=== PATIENT | female | born 1980 | race Hispanic/Latino ===

== ENCOUNTER 2018-03-01 17:22 | Emergency (ER) | payer SELFPAY ==
[2018-03-01 17:32] VITALS: BMI 28.3
[2018-03-01 17:47] VITALS: BP 145/93; PULSE 85; RESP 17; TEMP 98.3; O2SAT 100
[2018-03-01] MEDS ORDERED: Apap-Butalbital-Caffeine 325-50-40mg Tab PO STA (17:56)
[2018-03-01] MEDS ORDERED: Apap-Butalbital-Caffeine 325-50-40mg Tab ONE ×2 (18:14→18:44)
--- NOTE | 2018-03-01 18:39 | C.PDOC ---
History Of Present Illness Patient presents to ED c/o B/L occipital headache, as well as sore throat, chills and nonproductive cough for approx 6-7 days. Patient denies neck pain/ stiffness, fever, productive cough, chest pain, SOB, vomiting/diarrhea, headache , visual changes, dizziness, ear pain. Patient took tylenol earlier today without improvement. Time Seen by Provider: 03/01/18 17:39 Chief Complaint (Nursing): Headache History Per: Patient History/Exam Limitations: no limitations Onset/Duration Of Symptoms: Days Current Symptoms Are (Timing): Still Present Severity: Mild Quality: "Pain" Associated Symptoms: denies: Photophobia, Blurred Vision, Nausea, Vomiting Past Medical History Reviewed: Historical Data, Nursing Documentation, Vital Signs Vital Signs: Last Vital Signs Temp 98.3 F 03/01/18 17:37 Pulse 85 03/01/18 17:37 Resp 17 03/01/18 17:37 BP 145/93 H 03/01/18 17:37 Pulse Ox 100 03/01/18 18:45 - Medical History PMH: Gastritis - [facility] Procedures EXTRACTION OF POC, LOW CERVICAL, OPEN APPROACH (08/02/15) MONITORING OF POC, CARDIAC RATE, MUSIC INSTRUCTOR APPROACH (08/02/15) Family History: States: No Known Family Hx - Social History Hx Tobacco Use: No Hx Alcohol Use: No Hx Substance Use: No - Immunization History Hx Tetanus Toxoid Vaccination: No Hx Influenza Vaccination: No Hx Pneumococcal Vaccination: No Review Of Systems Constitutional: Positive for: Chills. Negative for: Fever ENT: Positive for: Nose Congestion, Throat Pain Respiratory: Positive for: Cough. Negative for: Shortness of Breath Gastrointestinal: Negative for: Nausea, Vomiting, Abdominal Pain, Diarrhea Skin: Negative for: Rash Neurological: Positive for: Headache Physical Exam - Physical Exam Appears: Well, Non-toxic, No Acute Distress Skin: Normal Color, Warm, Dry, No Rash Head: Normacephalic Eye(s): bilateral: Normal Inspection, PERRL, EOMI Oral Mucosa: Moist Throat: Normal, No Erythema, No Exudate Neck: Normal, Supple, Other (no meningismus ) Cardiovascular: Rhythm Regular Respiratory: Normal Breath Sounds, No Rales, No Rhonchi, No Wheezing Gastrointestinal/Abdominal: Normal Exam, Bowel Sounds, Soft, No Tenderness Neurological/Psych: Oriented x3 ED Course And Treatment O2 Sat by Pulse Oximetry: 100 (RA) Pulse Ox Interpretation: Normal Progress Note: Patient given PO Fiorecet. On reassessment, patient still c/o mild posterior headache, requesting something else for pain. IM toradol and PO flexeril given. Reevaluation Time: 19:15 Reassessment Condition: Improved (Patient reassessed, is resting comfortably and states she feels better. Rx for Naprosyn given, and patient instructed to follow up with PMD in 1-2 days. She understands she should return to ED if symptoms worsen.) Disposition Counseled Patient/Family Regarding: Diagnosis, Need For Followup, Rx Given - Disposition Referrals: [facility] at [facility] [Outside] Disposition: HOME/ ROUTINE Disposition Time: 19:00 Condition: STABLE Additional Instructions: FOLLOW UP WITH YOUR DOCTOR/CLINIC IN 1-2 DAYS USE MEDICATION NEEDED DRINK PLENTY OF FLUIDS RETURN TO EMERGENCY ROOM IF SYMPTOMS WORSEN SEGUIMIENTO CON PHELPS MDICO / CLNICA EN 1-2 BELTRAN USE MEDICAMENTOS SEGN SEA NECESARIO BEBER MUCHO LQUIDO REGRESE AL JUNIOR DE EMERGENCIA SI LOS SNTOMAS EMPEORAN Prescriptions: Naproxen 375 mg PO BID PRN #20 tablet PRN Reason: pain Instructions: Headache, Adult (DC), Viral Syndrome (DC) Forms: [facility] (Luxembourgish) Print Language: OLY - FLO Present On Arrival: None - Clinical Impression Clinical Impression: Headache, Viral syndrome
== END 2018-03-01 19:16 | disposition home or self-care (01) ==
LOC: C.ER 17:22
DX: B34.9 Viral infection, unspecified (principal); R51 Headache
CPT/HCPCS: 96372; 99284; J1885

== ENCOUNTER 2018-03-09 23:05 | Emergency (ER) | payer SELFPAY ==
[2018-03-09 23:06] VITALS: BMI 28.3
[2018-03-09 23:14] VITALS: O2SAT 100
[2018-03-09] MEDS ORDERED: Tramadol 25 mg PO STA (23:25)
[2018-03-10 00:57] VITALS: BP 133/86; PULSE 66; RESP 18; TEMP 98.5
--- NOTE | 2018-03-10 01:04 | C.PDOC ---
History Of Present Illness 38 year old female presents to the ER with a complaint of an occipital headache for the past 2 weeks. Patient was seen in the ER before for the same complaint and states naproxen no longer helps. He describes the headache as a tightness/ pressure to the occipital area radiating to his neck. Denies trauma, photophobia , weakness, or dizziness. Time Seen by Provider: 03/09/18 23:16 Chief Complaint (Nursing): Headache History Per: Patient History/Exam Limitations: no limitations Onset/Duration Of Symptoms: Days Current Symptoms Are (Timing): Still Present Quality: Tightness, Pressure Preceeding Symptoms: None Associated Symptoms: denies: Photophobia, Blurred Vision, Nausea, Vomiting, Extremity Weakness Recent travel outside of the [place]: No Past Medical History Reviewed: Historical Data, Nursing Documentation, Vital Signs Vital Signs: Last Vital Signs Temp 98.5 F 03/10/18 00:56 Pulse 66 03/10/18 00:56 Resp 18 03/10/18 00:56 BP 133/86 03/10/18 00:56 Pulse Ox 100 03/10/18 01:04 - Medical History PMH: Gastritis, HTN (preeclampsia) - [facility] Procedures EXTRACTION OF POC, LOW CERVICAL, OPEN APPROACH (08/02/15) MONITORING OF POC, CARDIAC RATE, MANAGER GAMES APPROACH (08/02/15) Family History: States: Unknown Family Hx - Social History Hx Tobacco Use: No Hx Alcohol Use: No Hx Substance Use: No - Immunization History Hx Tetanus Toxoid Vaccination: No Hx Influenza Vaccination: No Hx Pneumococcal Vaccination: No Review Of Systems Musculoskeletal: Positive for: Neck Pain Neurological: Positive for: Headache. Negative for: Weakness, Numbness, Dizziness, Other (Photophobia) Physical Exam - Physical Exam Appears: Non-toxic Skin: Normal Color, Warm, Dry Head: Atraumatic, Normacephalic Eye(s): bilateral: Normal Inspection, PERRL, EOMI Oral Mucosa: Moist Neck: Normal, No Midline Cervical Tenderness, No Paracervical Tenderness, Supple Extremity: Normal ROM (x4) Neurological/Psych: Oriented x3, Normal Speech ED Course And Treatment O2 Sat by Pulse Oximetry: 100 (Room air) Pulse Ox Interpretation: Normal - CT Scan/US CT head Other Rad Studies (CT/US): Read By Radiologist, Radiology Report Reviewed CT/US Interpretation: EXAM: CT Head Without Intravenous Contrast. EXAM DATE/ TIME: 03/09/2018 11:24 PM. CLINICAL HISTORY: 38 years old, female; Pain; Headache; Headache not specified; Additional info: Headache, occipital. TECHNIQUE: Axial computed tomography images of the head/brain without intravenous contrast. All CT scans at this facility use at least one of these dose optimization techniques: automated. exposure control; mA and/or kV adjustment per patient size (includes targeted exams where dose is. matched to clinical indication); or iterative reconstruction. Coronal and sagittal reformatted images were created and reviewed. COMPARISON: No relevant prior studies available. FINDINGS: Brain: Normal. No hemorrhage. No significant white matter disease. No edema. Ventricles: Normal. No ventriculomegaly. Bones /joints: Normal. No acute fracture. Sinuses: Normal as visualized. No acute sinusitis. Mastoid air cells: Normal as visualized. No mastoid effusion. Soft tissues: Normal. IMPRESSION: No acute findings. Progress Note: CT head ordered, results were negative. Tramadol and valium administered. Patient reports improvement of headache, she is resting comfortably in the ER in no acute distress, vitals are stable, will discharge home with Rx and instructions to follow up with PMD. Disposition Counseled Patient/Family Regarding: Diagnosis, Need For Followup - Disposition Referrals: [facility] at [facility] [Outside] Disposition: HOME/ ROUTINE Disposition Time: 01:01 Condition: STABLE Additional Instructions: Please follow up with PMD Take meds as directed Return to return to ER if worse Prescriptions: Cyclobenzaprine [Cyclobenzaprine HCl] 10 mg PO HS #7 tab traMADol [Ultram] 50 mg PO TID #15 tab Instructions: Headache, Adult (DC) Forms: [facility] (Grenadian) Print Language: SERBIAN - Clinical Impression Clinical Impression: Headache - Scribe Statement The provider has reviewed the documentation as recorded by the Scribe Ernst Winkler All medical record entries made by the Stanislawibe were at my direction and personally dictated by me. I have reviewed the chart and agree that the record accurately reflects my personal performance of the history, physical exam, medical decision making, and the department course for this patient. I have also personally directed, reviewed, and agree with the discharge instructions and disposition.
--- NOTE | 2018-03-10 10:29 | CT ---
Date of service: 03/10/2018 PROCEDURE: CT HEAD WITHOUT CONTRAST. HISTORY: Headache, occipital COMPARISON: None available. TECHNIQUE: Axial computed tomography images were obtained through the head/brain without intravenous contrast. Radiation dose: Total exam DLP = 1097.39 mGy-cm. This CT exam was performed using one or more of the following dose reduction techniques: Automated exposure control, adjustment of the mA and/or kV according to patient size, and/or use of iterative reconstruction technique. FINDINGS: HEMORRHAGE: No intracranial hemorrhage. BRAIN: No mass effect or edema. No atrophy or chronic microvascular ischemic changes. VENTRICLES: Unremarkable. No hydrocephalus. CALVARIUM: Unremarkable. PARANASAL SINUSES: Unremarkable as visualized. No significant inflammatory changes. MASTOID AIR CELLS: Unremarkable as visualized. No inflammatory changes. OTHER FINDINGS: None. IMPRESSION: Normal CT of the Head.
== END 2018-03-10 01:09 | disposition home or self-care (01) ==
LOC: C.ER 23:05
DX: R51 Headache (principal)

== ENCOUNTER 2018-08-25 23:17 | Emergency (ER) | payer SELFPAY ==
[2018-08-25 23:17] VITALS: BMI 28.3
[2018-08-25 23:26] VITALS: BP 158/91; PULSE 71; TEMP 98.3; O2SAT 100
--- NOTE | 2018-08-26 00:24 | C.PDOC ---
History Of Present Illness 38 year old female presents to the ER with pain to the left lateral rib area and left upper back area for the past 2 weeks that worsened today. She has been taking tylenol on and off. Denies SOB or injury. Time Seen by Provider: 08/25/18 23:31 Chief Complaint (Nursing): Back Pain History Per: Patient History/Exam Limitations: no limitations Onset/Duration Of Symptoms: Days Current Symptoms Are (Timing): Still Present Quality Of Discomfort: Unable To Describe Recent travel outside of the [place]: No Past Medical History Reviewed: Historical Data, Nursing Documentation, Vital Signs Vital Signs: Last Vital Signs Temp 98.3 F 08/25/18 23:22 Pulse 71 08/25/18 23:22 Resp 16 08/25/18 23:22 BP 158/91 H 08/25/18 23:22 Pulse Ox 100 08/25/18 23:22 - Medical History PMH: Gastritis, HTN (preeclampsia) - [facility] Procedures EXTRACTION OF POC, LOW CERVICAL, OPEN APPROACH (08/02/15) MONITORING OF POC, CARDIAC RATE, PARASITOLOGIST APPROACH (08/02/15) Family History: States: Unknown Family Hx - Social History Hx Tobacco Use: No Hx Alcohol Use: No Hx Substance Use: No - Immunization History Hx Tetanus Toxoid Vaccination: No Hx Influenza Vaccination: No Hx Pneumococcal Vaccination: No Review Of Systems Constitutional: Negative for: Fever, Chills Cardiovascular: Negative for: Chest Pain, Palpitations Respiratory: Negative for: Shortness of Breath Musculoskeletal: Positive for: Back Pain, Other (Rib pain) Neurological: Negative for: Weakness, Numbness Physical Exam - Physical Exam Appears: Non-toxic Skin: Normal Color, Warm, Dry Head: Atraumatic, Normacephalic Eye(s): bilateral: Normal Inspection Oral Mucosa: Moist Neck: Normal, Supple Chest: Tenderness (with palpation of left intercostal area at mid axillary line) Cardiovascular: Rhythm Regular Respiratory: Normal Breath Sounds, No Rales, No Rhonchi, No Wheezing Extremity: Normal ROM (x4) Neurological/Psych: Oriented x3, Normal Speech ED Course And Treatment O2 Sat by Pulse Oximetry: 100 (Room air) Pulse Ox Interpretation: Normal - Radiology CXR: Interpreted by Me, Viewed By Me CXR Interpretation: Yes: No Acute Disease. No: Infiltrates Progress Note: CXR ordered, results were negative. Motrin administered for pain. Patient resting comfortably in no acute distress, vitals are stable, will discharge home with Rx and instructions to follow up with PMD. Disposition Counseled Patient/Family Regarding: Diagnosis, Need For Followup, Rx Given - Disposition Disposition: HOME/ ROUTINE Disposition Time: 00:22 Condition: STABLE Additional Instructions: Follow up in clinic Take medications as directed Return to ER if worse Prescriptions: Cyclobenzaprine [Cyclobenzaprine HCl] 10 mg PO HS #10 tab Ibuprofen [Motrin] 600 mg PO Q6H #20 tab Instructions: Muscle Strain (DC) Forms: [facility] (Taiwanese) Print Language: UZBEK - Clinical Impression Clinical Impression: Muscle strain - PA / LEAD FORMER / Resident Statement MD/DO has reviewed & agrees with the documentation as recorded. - Scribe Statement The provider has reviewed the documentation as recorded by the Scribbret Winkler All medical record entries made by the Stanislawibbret were at my direction and personally dictated by me. I have reviewed the chart and agree that the record accurately reflects my personal performance of the history, physical exam, medical decision making, and the department course for this patient. I have also personally directed, reviewed, and agree with the discharge instructions and disposition.
[2018-08-26 00:33] VITALS: RESP 20
--- NOTE | 2018-08-26 11:06 | RAD ---
Date of service: 08/25/2018 PROCEDURE: Radiographs of the Chest and Left Ribs. HISTORY: pain to left ribs COMPARISON: None available. TECHNIQUE: Frontal radiograph of the chest and multiple oblique radiographs of the left ribs were obtained. FINDINGS: LEFT RIBS: No acute rib fracture or focal lesion visualized. LUNGS: The lungs are well inflated and clear. PLEURA: No pneumothorax or pleural fluid. CARDIOVASCULAR: Normal cardiac size. No pulmonary vascular congestion. No aortic atherosclerotic calcification present OTHER FINDINGS: None. IMPRESSION: No acute rib fracture. Clear lungs.
== END 2018-08-26 00:32 | disposition home or self-care (01) ==
LOC: C.ER 23:17
DX: S29.019A Strain of muscle and tendon of unspecified wall of thorax, initial encounter (principal); X58.XXXA Exposure to other specified factors, initial encounter

== ENCOUNTER 2018-11-02 15:26 | Emergency (ER) | payer SELFPAY ==
[2018-11-02 15:27] VITALS: BMI 28.3
[2018-11-02 15:34] VITALS: O2SAT 100
--- NOTE | 2018-11-02 16:21 | C.PDOC ---
History Of Present Illness 38 year old female presents to the ED complaining of palpitations and shortness of breath since last night around 2330. Reports she has sharp intermittent chest pain on deep breathing but does not longer have the palpitations or shortness of breath. Notes she has had cough for 3 days. Denies any leg swelling, use of control or any other hormone use, recent travels, recent surgery or trauma, or feeling anxious. Reports similar presentation once before when she was told she had high blood pressure. Time Seen by Provider: 11/02/18 15:55 Chief Complaint (Nursing): Palpitations History Per: Patient History/Exam Limitations: no limitations Onset/Duration Of Symptoms: Hrs Current Symptoms Are (Timing): Still Present Past Medical History Reviewed: Historical Data, Nursing Documentation, Vital Signs Vital Signs: Last Vital Signs Temp 97.7 F 11/02/18 15:33 Pulse 76 11/02/18 15:33 Resp 20 11/02/18 15:33 BP 160/109 H 11/02/18 15:33 Pulse Ox 100 11/02/18 15:33 - Medical History PMH: Gastritis, HTN (preeclampsia) Surgical History: - [facility] Procedures EXTRACTION OF POC, LOW CERVICAL, OPEN APPROACH (08/02/15) MONITORING OF POC, CARDIAC RATE, GRATED CHEESE MAKER APPROACH (08/02/15) Family History: States: No Known Family Hx - Social History Hx Tobacco Use: No Hx Alcohol Use: No Hx Substance Use: No - Immunization History Hx Tetanus Toxoid Vaccination: No Hx Influenza Vaccination: No Hx Pneumococcal Vaccination: No Review Of Systems Except As Marked, All Systems Reviewed And Found Negative. Cardiovascular: Positive for: Palpitations Respiratory: Positive for: Shortness of Breath Psych: Negative for: Anxiety Physical Exam - Physical Exam Additional Physical Exam Comments: Constitutional: No acute distress. Head: Normocephalic. Atraumatic. Eyes: PERRL. ENT: Moist mucous membranes. Neck: Supple. Cardiovascular: Regular rate. Radial pulse 2+ bilaterally. Chest: No tenderness. Respiratory: Clear to auscultation bilaterally. GI: Soft. Nontender. Nondistended. Back: No CVA tenderness. Musculoskeletal: No tenderness or swelling of extremities. Skin: No rash. Neurologic: Alert, no focal deficit. PERC negative ED Course And Treatment - Laboratory Results Result Diagrams: 11/02/18 16:40 11/02/18 16:40 O2 Sat by Pulse Oximetry: 100 (RA) Pulse Ox Interpretation: Normal - Other Rad CXR X-Ray: Viewed By Me, Read By Radiologist Interpretation: Accession No. : [id number]. Patient Name / ID : VANCE GALAN / [id number]. Exam Date : 11/02/2018 16:15:15 ( Approved ). Study Comment : Sex / Age : F / 38Y. Creator : London Landrum MD. Dictator : London Landrum MD. Machine Or Machinery Mechanic : Refrigeration Lead : London Landrum MD. Approver2 : Report Date : 11/02/2018 16:53:27. My Comment : . Date of service: 11/02/2018. HISTORY: palpitations. COMPARISON: 08/25/2018. TECHNIQUE: Chest PA and lateral views. Two views. FINDINGS: LUNGS: No active pulmonary disease. PLEURA: No significant pleural effusion identified. No pneumothorax apparent. CARDIOVASCULAR: No aortic atherosclerotic calcification present. Normal cardiac size. No pulmonary vascular congestion. OSSEOUS STRUCTURES: No significant abnormalities. VISUALIZED UPPER ABDOMEN: Normal. OTHER FINDINGS: None. IMPRESSION: No active disease. Medical Decision Making Medical Decision Making: Plan - Bloodwork - CXR BP resolved without intervention. Will discharge, f/u PMD, return to ED for worsening pain, dyspnea, or any other problem. Disposition - Disposition Referrals: [facility] at [facility] [Outside] Disposition: HOME/ ROUTINE Disposition Time: 18:17 Condition: GOOD Instructions: Palpitations Forms: [facility] (Trinidadian) - Clinical Impression Clinical Impression: Palpitations - Scribe Statement The provider has reviewed the documentation as recorded by the Scribe Florence Benton All medical record entries made by the Scribe were at my direction and persona lly dictated by me. I have reviewed the chart and agree that the record accurately reflects my personal performance of the history, physical exam, medical decision making, and the department course for this patient. I have also personally directed, reviewed, and agree with the discharge instructions and disposition.
[2018-11-02 16:50] LABS: BASO % 0.9 % (0.0-2.0); EOS # 0.2 K/uL (0.0-0.7); EOS % 5.1 % (0.0-4.0); LYMPH # 1.6 K/uL (1.0-4.3); LYMPH % 37.9 % (20.0-40.0); MEAN CELL VOLUME 92.2 fL (81.0-99.0); MEAN CORPUSCULAR HEMOGLOBIN 31.5 pg (27.0-31.0); MEAN CORPUSCULAR HGB CONC 34.2 g/dL (33.0-37.0); MEAN PLATELET VOLUME 7.6 fL (7.2-11.7); MONO # 0.4 K/uL (0.0-0.8); MONO % 9.9 % (0.0-10.0); NEUT % 46.2 % (50.0-75.0); RBC 4.53 Mil/uL (3.80-5.20); RED CELL DISTRIBUTION WIDTH 12.8 % (11.5-14.5); WHITE BLOOD COUNT 4.3 K/uL (4.8-10.8)
[2018-11-02 16:55] LABS: HEMOGLOBIN 14.3 g/dL (11.0-16.0)
--- NOTE | 2018-11-02 16:57 | RAD ---
Date of service: 11/02/2018 HISTORY: palpitations COMPARISON: 08/25/2018 TECHNIQUE: Chest PA and lateral views. Two views FINDINGS: LUNGS: No active pulmonary disease. PLEURA: No significant pleural effusion identified. No pneumothorax apparent. CARDIOVASCULAR: No aortic atherosclerotic calcification present. Normal cardiac size. No pulmonary vascular congestion. OSSEOUS STRUCTURES: No significant abnormalities. VISUALIZED UPPER ABDOMEN: Normal. OTHER FINDINGS: None. IMPRESSION: No active disease.
[2018-11-02 17:05] LABS: ALB/GLOB RATIO 1.5 (1.0-2.1); ALBUMIN 4.3 g/dL (3.5-5.0); ALT/SGPT 61 U/L (9-52); AST/SGOT 30 U/L (14-36); BLOOD UREA NITROGEN 12 mg/dL (7-17); CALCIUM 9.2 mg/dl (8.6-10.4); GFR NON-AFRICAN AMERICAN > 60
[2018-11-02 17:17] LABS: CK-MB < 0.22 ng/mL (0.0-3.38)
[2018-11-02 18:26] VITALS: BP 121/84; PULSE 73; RESP 16; TEMP 98.2
--- NOTE | 2018-11-03 12:21 | CARD ---
APPROVED REPORT Date of service: 11/02/2018 EKG Measurement Heart [id number] <Conclusion> Normal sinus rhythm Normal ECG
== END 2018-11-02 18:26 | disposition home or self-care (01) ==
LOC: C.ER 15:26
DX: R00.2 Palpitations (principal)